=== PATIENT | male | born 1950 | race Caucasian/White ===

== ENCOUNTER 2018-07-23 10:09 | Day surgery (SDC) | payer OTHER ==
[~2018-07-23] VITALS: Ht 165.1 cm; Wt 116.7 kg
[~2018-07-23 10:09] MED LIST: ALBU90OI6 INH; AMLO5 PO; Aspir 8181 MG PO; Cardura8 MG PO; DOXA4 PO; FURO40 PO; Ferrous Glucon324 MG PO; Fish Oil 10001000 MG PO; HYDCHL12.5 PO; METO50 PO; OCUVITE ADULT1 EACH PO; POTCHL10ER PO; Pravastatin Sod80 MG PO; SILENOR3 MG PO; SPIRIVA RESPIMAT4 G1 INH; Zestril40 MG PO
== END 2018-07-23 13:14 | disposition home or self-care (01) ==
LOC: ORSCSDS 10:09
PROVIDERS: Internal Medicine Gastroenterology
PROC: 0DBE8ZX Excision of Large Intestine, Via Natural or Artificial Opening Endoscopic, Diagnostic (ICD-10-PCS; principal; 2018-07-23 12:00)
DX: Z12.11 Encounter for screening for malignant neoplasm of colon (principal); K63.3 Ulcer of intestine; Z85.038 Personal history of other malignant neoplasm of large intestine; E78.5 Hyperlipidemia, unspecified; I10 Essential (primary) hypertension; G47.33 Obstructive sleep apnea (adult) (pediatric); Z87.891 Personal history of nicotine dependence; J44.9 Chronic obstructive pulmonary disease, unspecified; K57.30 Diverticulosis of large intestine without perforation or abscess without bleeding; K64.8 Other hemorrhoids; E66.01 Morbid (severe) obesity due to excess calories; Z68.41 Body mass index [BMI] 40.0-44.9, adult; Z79.82 Long term (current) use of aspirin; Z79.899 Other long term (current) drug therapy
CPT/HCPCS: J7120

== ENCOUNTER 2021-03-15 10:16 | Day surgery (SDC) | payer OTHER ==
[~2021-03-15] VITALS: Ht 167.6 cm; Wt 124.6 kg
[~2021-03-15 10:16] MED LIST changes: +SPIRIVA RESPIMAT4 G2
== END 2021-03-15 12:16 | disposition home or self-care (01) ==
LOC: ORSCSDS 10:16
PROVIDERS: Internal Medicine Gastroenterology
PROC: 0DBG8ZX Excision of Left Large Intestine, Via Natural or Artificial Opening Endoscopic, Diagnostic (ICD-10-PCS; principal; 2021-03-15 11:45)
DX: Z12.11 Encounter for screening for malignant neoplasm of colon (principal); K51.40 Inflammatory polyps of colon without complications; Z86.010 Personal history of colon polyps; K64.8 Other hemorrhoids; I10 Essential (primary) hypertension; G47.33 Obstructive sleep apnea (adult) (pediatric); E66.01 Morbid (severe) obesity due to excess calories; Z68.41 Body mass index [BMI] 40.0-44.9, adult; Z87.891 Personal history of nicotine dependence; Z79.899 Other long term (current) drug therapy
CPT/HCPCS: 88305; J2704; J7120

== ENCOUNTER 2021-08-07 08:20 | Day surgery (SDC) | payer OTHER ==
[~2021-08-07] VITALS: Ht 165.1 cm; Wt 124.5 kg
[2021-08-07] MEDS ORDERED: METAMUCIL POWD798 GM (08:51)
[2021-08-07 09:32] LABS: Influenza A, PCR NEGATIVE (NEGATIVE); Influenza B, PCR NEGATIVE (NEGATIVE); Resp Syncytial Virus, PCR NEGATIVE (NEGATIVE); SARS-Cov-2 (COVID-19) PCR, MMC NEGATIVE (NEGATIVE)
== END 2021-08-07 11:09 | disposition home or self-care (01) ==
LOC: ORSCSDS 08:20
PROVIDERS: Student in an Organized Health Care Education/Training Program
PROC: 0DBG8ZX Excision of Left Large Intestine, Via Natural or Artificial Opening Endoscopic, Diagnostic (ICD-10-PCS; principal; 2021-08-07 10:00)
PROC: 3E0H8KZ Introduction of Other Diagnostic Substance into Lower GI, Via Natural or Artificial Opening Endoscopic (ICD-10-PCS; principal; 2021-08-07 10:00)
PROC: 0DBL8ZX Excision of Transverse Colon, Via Natural or Artificial Opening Endoscopic, Diagnostic (ICD-10-PCS; principal; 2021-08-07 10:00)
DX: Z85.038 Personal history of other malignant neoplasm of large intestine (principal); Z86.010 Personal history of colon polyps; D12.3 Benign neoplasm of transverse colon; D12.4 Benign neoplasm of descending colon; J44.9 Chronic obstructive pulmonary disease, unspecified; Z87.891 Personal history of nicotine dependence; I10 Essential (primary) hypertension; E78.5 Hyperlipidemia, unspecified; G47.33 Obstructive sleep apnea (adult) (pediatric); N18.9 Chronic kidney disease, unspecified; Z79.899 Other long term (current) drug therapy; E66.01 Morbid (severe) obesity due to excess calories; Z68.42 Body mass index [BMI] 45.0-49.9, adult
CPT/HCPCS: 0241U; 88305; J2704; J7120

== ENCOUNTER 2024-08-12 11:27 | Day surgery (SDC) | payer OTHER ==
[~2024-08-12] VITALS: Ht 167.6 cm; Wt 129.0 kg
[~2024-08-12 11:27] MED LIST changes: +Balanced Salt Epinephrine Irrigation Solution 500 mL IR SCH; +Lidocaine HCl/Pf 1% 5 ML VIAL XX SCH; +METAMUCIL POWD798 GM; +Moxifloxacin HCL 0.5 MG/0.1 ML 0.4MLSYR RIGHTEYE SCH; +OCUVITE BLUE L1 EACH PO; +PHENYLEPHRINE\\TROPICAMIDE\\TETRACAINE OPHTHALMIC DILATING SOLN RIGHTEYE PRN; +Povidone-Iodine 450 DROP/30 ML Solution ONE; +Povidone-Iodine 450 DROP/30 ML Solution RIGHTEYE SCH; +Tetracaine HCl/Pf 0.5% Opth Soln 4 ml ONE
[2024-08-12] MEDS ORDERED: Diazepam 5 MG Tab ONE (11:54)
[2024-08-12] MEDS ORDERED: Diazepam 2 MG Tab ONE (11:54)
[2024-08-12] MEDS ORDERED: FOLI1 (12:15)
[2024-08-12] MEDS ORDERED: Ascorbic Acid500 MG PO (12:16)
--- NOTE | 2024-08-12 12:22 | NUR ---
08/12/24 1222 Aidee Ventura TOP OF PATIENT'S LEFT HAND NOTED TO HAVE SOME SWELLING IN PREOP. IV PLACED IN LFA DUE TO THIS INSTEAD OF IN LEFT HAND. PT IS NOT AWARE OF ANY INJURIES TO THAT AREA.
[2024-08-12 13:24] VITALS: BP 141/94
== END 2024-08-12 13:35 | disposition home or self-care (01) ==
LOC: ORSCSDS 11:27
PROVIDERS: Student in an Organized Health Care Education/Training Program
PROC: 08RJ3JZ Replacement of Right Lens with Synthetic Substitute, Percutaneous Approach (ICD-10-PCS; principal; 2024-08-12 13:00)
DX: H25.813 Combined forms of age-related cataract, bilateral (principal); I10 Essential (primary) hypertension; H35.30 Unspecified macular degeneration; G47.33 Obstructive sleep apnea (adult) (pediatric); E66.01 Morbid (severe) obesity due to excess calories; Z68.42 Body mass index [BMI] 45.0-49.9, adult; Z79.82 Long term (current) use of aspirin; Z79.899 Other long term (current) drug therapy
CPT/HCPCS: A9270; V2632